=== PATIENT | female | born 1945 | race Caucasian/White ===

== ENCOUNTER 2023-04-18 21:07 | Emergency (ER) | payer MEDICARE ==
--- OUTSIDE RECORDS SUMMARY | 2023-04-18 21:29 | XMS REPORT | Continuity of Care Document ---
:1945 Author Organization [facility] t Address [address] [place] [address] [address] [place] [address] Care Team Providers Name Role Phone Nany Guzman MD Primary Care Physician [phone] Nany Guzman MD Attending Clinician [phone] NANY GUZMAN Attending Clinician Unavailable 2, Adc Lab Attending Clinician Unavailable Doctor Unassigned, [place] Attending Clinician Unavailable IGNACIO LIM Attending Clinician Unavailable JAMARI CASTILLO K.HJosseline Attending Clinician Unavailable Ignacio Lim MD Attending Clinician Aleks Cedeno MD Attending Clinician ALEKS CEDENO Attending Clinician Unavailable Only, Adc Test Attending Clinician Unavailable Pob, Adc Lab Main Attending Clinician Unavailable Jamari Castillo MD K.HJosseline Attending Clinician Aleks Cedeno MD Admitting Clinician ALEKS CEDENO Admitting Clinician Unavailable Payers Payer Name Policy Type Policy Number Effective Date Expiration Date S [facility] Bioclones [id number] 2022 (MEDICARE 00:00:00 REPLACEMENT HMO) [employer] MEDICARE ADV [id number] 2013 2021 00:00:00 00:00:00 CIGNA II [id number] 2009 00:00:00 Problems Condition Condition Condition Status Onset Resolution Last Treating Co mments Source Name Details Category Date Date Treatment Clinician Date Chronic Chronic Disease Active Univers midline midline 4-28 ity of low back low back 00:00: [place] pain pain 00 Medical without without Branch sciatica sciatica 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 00:00: [place] block block 00 Medical Branch Cortical Cortical Disease Active Unive rs age-relate age-relate 4-08 it y of d cataract d cataract [place] left of left 00 Medical eye eye Branch Diabetes Diabetes Disease Active Unive rs mellitus, mellitus, 4-08 ity of type II, type II, 00:00: [place] insulin insulin 00 Medical dependent dependent Bran ch Bilateral Bilateral Disease Active Uni vers lower lower 4-08 [place] of extremity extremity [place] edema edema 00 [place] Hyperlipid Hyperlipid Disease Active U nivers emia emia 8-21 ity of 00:00: [place] 00 Medical Branch Essential Essential Disease Active Uni vers hypertensi hypertensi 6-19 it y of on on 00:00: [place] Medical Branch Diabetes Diabetes Disease Active Overview: Un rene mellitus mellitus 6-19 Formattin ity of type 2, type 2, 00:00: g of this [place] uncontroll uncontroll 00 note Me dical ed, ed, might be Branch without without different complicati complicati from the ons ons original. ICD10 Diagnosis Term Client Experience Administrator Utility Allergies, Adverse Reactions, Alerts Allergy Allergy Status Severity Reaction(s) Onset Inactive Treating Comm ents Source Name Type Date Date Clinician Penicill Propensi Active Hives Univer s ins ty to 2-07 ity of adverse 00:00: [place] reaction 00 Medical s Branch PENICILL Drug Active Hives Univers INS Class 2-07 ity of 00:00: [place] 00 Medical Branch Penicill Propensi Active Hives Univer s ins ty to 2-07 ity of adverse 00:00: [place] reaction 00 Medical s Branch Penicill Propensi Active Hives Univer s ins ty to 2-07 ity of adverse 00:00: [place] reaction 00 Medical s Branch Social History Social Habit Start Date Stop Date Quantity Comments Source Alcohol intake 2021-11-07 2021-11-07 Current University of 00:00:00 00:00:00 non-drinker of [facility] alcohol (finding) [place] Tobacco use and 2013-02-05 2013-02-05 Smokeless tobacco Un iversity of exposure 00:00:00 00:00:00 non-user [facility] Sex Assigned At [birth year] Universit y of 00:00:00 00:00:00 [facility] Smoking Status Start Date Stop Date Source Never smoked tobacco [facility] Medications Ordered Filled Start Stop Current Ordering Indication Dosage Frequency Signature Comments Components Source Medication Medication Date Date Medication? Clinician (SIG) Name Name bisoproloL- 2021- No 5mg Take Unive rs hydrochloro 3-21 03-21 5-6.25 mg it y of thiazide 14:02: 00:00 by mouth. Malcolm as 5-6.25 mg 15 :00 Medical per tablet Branch bisoproloL- 2021- No 5mg Take Unive rs hydrochloro 3-21 03-21 5-6.25 mg it y of thiazide 14:02: 00:00 by mouth. Malcolm as 5-6.25 mg 15 :00 Medical per tablet Branch metformin Yes [id number] 1000mg Take 2 Univers ER 500 mg 3-21 tablets by ity of 24 hr 00:00: mouth 2 [place] tablet 00 (two) Medical times Branch daily. insulin Yes [id number] 45U inject 45 Univers degludec 3-21 Units ity of (TRESIBA 00:00[place] FLEXTOUCH 00 skin Medical U-100) 100 daily. Branch unit/mL (3 mL) InPn metformin Yes [id number] 1000mg Take 2 Univers ER 500 mg 3-21 tablets by ity of 24 hr 00:00: mouth 2 [place] tablet 00 (two) Medical times Branch daily. insulin Yes [id number] 45U inject 45 Univers degludec 3-21 Units ity of ([place]ESIBA 00:00[place] FLEXT[place] 00 skin Medical U-100) 100 daily. Branch unit/mL (3 mL) InPn metformin Yes [id number] 1000mg Take 2 Univers ER 500 mg 3-21 tablets by ity of 24 hr 00:00: mouth 2 [place] tablet 00 (two) Medical times Branch daily. insulin Yes [id number] 45U inject 45 Univers degludec 3-21 Units ity of (TRESIBA 00:00[place] FLEXT[place]CH 00 skin Medical U-100) 100 daily. Branch unit/mL (3 mL) InPn metformin Yes [id number] 1000mg Take 2 Univers ER 500 mg 3-21 tablets by ity of 24 hr 00:00: mouth 2 [place] tablet 00 (two) Medical times Branch daily. insulin Yes [id number] 45U inject 45 Univers degludec 3-21 Units ity of (TRESIBA 00:00[place] FLEXT[place]CH 00 skin Medical U-100) 100 daily. Branch unit/mL (3 mL) InPn metformin Yes [id number] 1000mg Take 2 Univers ER 500 mg 3-21 tablets by ity of 24 hr 00:00: mouth 2 [place] tablet 00 (two) Medical times Branch daily. insulin Yes [id number] 45U inject 45 Univers degludec 3-21 Units ity of (TRESIBA 00:00[place] FLEXT[place]CH 00 skin Medical U-100) 100 daily. Branch unit/mL (3 mL) InPn metformin 2021- No [id number] 1000mg Take 2 Univers ER 500 mg 4-29 03-21 tablets by ity of 24 hr 00:00: 00:00 mouth 2 [place] tablet 00 :00 (two) Medical times Branch daily. metformin 2021- No [id number] 1000mg Take 2 Univers ER 500 mg 4-29 03-21 tablets by ity of 24 hr 00:00: 00:00 mouth 2 [place] tablet 00 :00 (two) Medical times Branch daily. furosemide 2020-2021- No [id number] 20mg Take 1 Univers 20 mg 4-28 03-21 tablet by ity of tablet 00:00: 00:00 mouth [place] 00 :00 every Medical Sunday, Branch Sunday and Sunday. ciprofloxac 2021- No [id number] 500mg Take 1 Univers in HCl 500 4-28 -21 tablet by ity of mg tablet 00:00: 00:00 mouth [place] 00 :00 every 12 Medical (twelve) Branch hours. furosemide 2020-2- No [id number] 20mg Take 1 Univers 20 mg 12-15- tablet by ity of tablet 00:00: 00:00 mouth [place] 00 :00 every Medical Sunday, Branch Sunday and Sunday. ciprofloxac 0 2022- No [id number] 500mg Take 1 Univers in HCl 500 12-15- tablet by ity of mg tablet 00:00: 00:00 mouth [place] 00 :00 every 12 Medical (twelve) Branch hours. blood sugar Yes [id number] Dispense Univers diagnostic 4-08 brand ity of (ONETOUCH 00:[place] TEST[place] 00 insurance Med ical strip Branch bisoproloL- Yes [id number] 1{tbl} Take 1 Univers hydrochloro 4-08 tablet by ity of thiazide 00:00: mouth [place] 5-6.25 mg 00 daily. Medical per tablet Branch blood sugar Yes [id number] Dispense Univers diagnostic 4-08 brand ity of (ONETOUCH 00:[place] 00 insurance Med ical strip Branch bisoproloL- Yes [id number] 1{tbl} Take 1 Univers hydrochloro 4-08 tablet by ity of thiazide 00:00: mouth [place] 5-6.25 mg 00 daily. Medical per tablet Branch blood sugar 2020- Yes [id number] Dispense Univers diagnostic 4-08 brand ity of (ONETOUCH 00:[place] 00 insurance Med ical strip Branch bisoproloL- Yes [id number] 1{tbl} Take 1 Univers hydrochloro 4-08 tablet by ity of thiazide 00:00: mouth [place] 5-6.25 mg 00 daily. Medical per tablet Branch blood sugar Yes [id number] Dispense Univers diagnostic 4-08 brand ity of (ONETOUCH 00:[place] 00 insurance Med ical strip Branch bisoproloL- Yes [id number] 1{tbl} Take 1 Univers hydrochloro 4-08 tablet by ity of thiazide 00:00: mouth [place] 5-6.25 mg 00 daily. Medical per tablet Branch blood sugar Yes [id number] Dispense Univers diagnostic 4-08 brand ity of (ONETOUCH 00:00: covered by [employer] ULTRA TEST) 00 insurance Med ical strip Branch bisoproloL- Yes [id number] 1{tbl} Take 1 Univers hydrochloro -08 tablet by ity of thiazide 00:00: mouth [place] 5-6.25 mg 00 daily. Medical per tablet Branch insulin NPH 2021- No [id number] 45 units Univers and regular 11-25 in AM and it y of human 70-30 00:00: 00:00 35 [place] (NOVOLIN 00 :00 in PM Medical 70/30 U-100 Branch INSULIN) 100 unit/mL (70-30) injection SITagliptin 2021- No [id number] 100mg Take 1 Univers 100 mg 11-25 tablet by ity of tablet 00:00: 00:00 mouth [place] 00 :00 daily. Medical Branch insulin NPH 2021- No [id number] 45 units Univers and regular 11-25 in AM and it y of human 70-30 00:00: 00:00 35 [place] (NOVOLIN 00 :00 in PM Medical 70/30 U-100 Branch INSULIN) 100 unit/mL (70-30) injection SITagliptin 2021- No [id number] 100mg Take 1 Univers 100 mg 11-25 tablet by ity of tablet 00:00: 00:00 mouth [place] 00 :00 daily. [facility] Vital Signs Vital Name Observation Time Observation Value Comments Source Systolic blood 2021-11-07 18:13:00 106 mm[Hg] Univer sity of pressure [facility] Diastolic blood 2021-11-07 18:13:00 67 mm[Hg] [facility] Heart rate 2021-11-07 18:13:00 59 /min [facility] Body temperature 2021-11-07 18:13:00 36.44 [facility] Respiratory rate 2021-11-07 18:13:00 18 /min [facility] Body height 2021-11-07 18:13:00 160 cm [facility] Body weight 2021-11-07 18:13:00 106.595 kg [facility] BMI 2021-11-07 18:13:00 41.63 kg/m2 [facility] Oxygen saturation in 2021-11-07 18:13:00 95 /min University Arterial blood by [facility] Pulse oximetry Branch Procedures This patient has no known procedures. Encounters Start End Encounter Admission Attending Care Care Encounter Source Date/Time Date/Time Type Type Clinicians Facility Department ID 2022-12-23 2022-12-23 Outpatient [facility] [id number] Devoted 00:00:00 00:00:00 [id number] Medica l Group 2022-06-14 2022-06-14 [facility] [id number] [facility] 00:00:00 00:00:00 Nany BHAGAT [id number] ity of [place].2.686 [place] PROF[place] [phone] [address] 2022-06-12 2022-06-12 [facility] [id number] Devoted 00:00:00 00:00:00 [id number] Medica l Group 2022-05-01 2022-05-01 Outpatient R ALICIA [facility] [id number] [facility] 10:40:00 10:40:00 NANY oneal [facility] 2022-02-27 2022-02-27 [facility] [id number] [facility] 00:00:00 00:00:00 Nany BHAGAT [id number] ity of [place] [id number] [phone] [address] 2022-02-14 2022-02-14 Customer Support Manager 2, Adc Lab [facility] 1.2.840.114 [id number] [facility] 09:45:00 10:00:00 Visit Nany Guzman 350.1. 13.10 ity of [place] 4.2.[place].2.[place] [id number] [facility] [address] [facility] 2022-02-14 2022-02-14 Outpatient R ALICIA [facility] [id number] Univers 09:45:00 09:45:00 NANY oneal [facility] 2022-02-13 2022-02-13 [facility] [id number] Univers 16:40:00 16:40:00 NANY oneal [facility] 2021-11-07 2021-11-07 [facility] [id number] [facility] 13:00:00 14:25:10 NANY oneal [facility] 2021-11-07 2021-11-07 Office [facility] 1.2.840.114 [id number] [facility] 13:00:00 14:25:10 Visit Nany BHAGAT [id number] ity of [place] 4.2.[place].2.[place] [phone] [facility] [address] [facility] 2021-11-07 2021-11-[address] [facility] [id number] [facility] 00:00:00 00:00:00 Nany BHAGAT [id number] it[place] of [place] [phone] [address] 2021-08-23 2021-08-23 Orders Doctor EMERITA 1.2.840.114 [id number] Univers 00:00:00 00:00:00 Only Unassigned, JONATHAN [id number] ity of [place] [facility] 4.2.7.2.686 Malcolm as [phone] [address] 2021-05-09 2021-05-09 Orders Doctor EMERITA 1.2.840.114 [id number] [facility] 00:00:00 00:00:00 Only Unassigned, JONATHAN [id number] ity of [place] [facility] 4.2.7.2.686 [place] as [phone] [address] 2021-03-24 2021-03-24 [facility] [id number] Univers 14:20:00 14:20:00 IGNACIO jm [facility] 2021-01-13 2021-01-13 [facility] [id number] Univers 09:00:00 09:00:00 SENDIL ity [facility] 2020-12-22 2020-12-22 [facility] [id number] Univers 11:00:00 11:00:00 [facility] 2020-12-16 2020-12-16 [facility] 1.2.840.114 [id number] Univers 00:00:00 00:00:00 Nany Cal[place] [id number] ity of [place] 4.2.7.2.686 Malcolm as Professio [phone] [address] Office Building One 2020-12-15 2020-12-15 Telemedici [facility] 1.2.840.114 [id number] Univers 12:13:29 12:13:49 ne Visit Ignacio Bhagat 350.1.13.10 it[place] Profess[place] [phone] [address] 2020-12-15 2020-12-15 [facility] [id number] Univers 09:00:00 12:13:49 IGNACIO oneal [facility] 2020-12-09 2020-12-09 Telephone [facility] 1.2.840.114 [id number] Univers 00:00:00 00:00:00 Ignacio Bhagat 350.1.13.10 i ty [place]2.[place] Profess[place] [phone] [address] 2020-12-08 2020-12-08 [facility] [id number] Univers 06:46:00 09:00:00 Encounter Aleks Bhagat 350.1.13.10 ity of [place].2.[place] Surgical [id number] [facility] 071 Branch 2020-12-08 2020-12-08 [facility] OPH [id number] Univers 06:46:00 09:00:00 ALEKS ity [facility] 2020-12-08 2020-12-08 Surgery [facility] 1.2.840.114 [id number] Univers 08:00:00 08:42:00 Aleks Bhagat 350.1.13.10 ity of [place] 4[place]2.[place].2.[place] Surgical [id number] [facility] 020 Branch 2020-12-08 2020-12-08 Orders Doctor EMERITA 1.2.840.114 [id number] Univers 00:00:00 00:00:00 Only Unassigned, JONATHAN 350.1.13.10 ity of [place] [facility] 4.2.7.2.686 Malcolm as [phone] [facility] [address] [place] 2020-12-07 2020-12-07 Outpatient R WILIAN [facility] [id number] Univers 09:00:00 09:00:00 ALEKS ravi [facility] 2020-12-07 2020-12-07 Laboratory Only, Adc Test [facility] 1.2.840. 114 [id number] Univers 08:39:49 08:54:49 Only Aleks Cedeno 350.1.13.1 0 ity of [place] [phone] [facility] 353 Branch 2020-12-07 2020-12-07 Orders Doctor FELDER 1.2.840.114 [id number] Univers 00:00:00 00:00:00 Only Unassigned, JONATHAN 350.1.13.10 ity of [place] [facility] 4.2.7.2.686 Malcolm as [phone] [facility] 009 [place] 2020-12-03 2020-12-03 Customer Support Manager Ashley, Adc Lab Main [facility] 1.2.8 [id number] Univers 10:27:26 10:42:26 Visit Aleks Cedeno 350.1.13.1 0 ity of [place] 4[place].2.[place] Profess[place] [phone] Mt dical nal [address] [facility] 2020-12-03 2020-12-03 Outpatient R WILIAN [facility] [id number] Univers 10:15:00 10:15:00 ALEKS ity of [facility] 2020-12-03 2020-12-03 Orders Doctor FELDER 1.2.840.114 [id number] Univers 00:00:00 00:00:00 Only Unassigned, JONATHAN 350.1.13.10 ity of [place] [facility] 4.2.7.2.686 Malcolm as [phone] [address] 2020-11-29 2020-11-29 Outpatient R ANNA [facility] [id number] Univers 13:30:00 13:56:06 SENDIL ity [facility] 2020-11-29 2020-11-29 Office Anna [facility] 1.2.840.114 [id number] Univers 12:51:45 13:56:06 Visit Jamari Bhagat 350.1.13.10 ity of [place] 4[place]2.[place].2.[place] Profess[place] [phone] Mt dical nal [address] [facility] 2020-11-29 2020-11-29 Outpatient R ANNA [facility] [id number] Univers 13:00:00 13:00:00 SENDIL ity [facility] 2020-11-29 2020-11-29 Orders Doctor FELDER 1.2.840.114 [id number] Univers 00:00:00 00:00:00 Only Unassigned, JONATHAN 350.1.13.10 ity of [place] [facility] 4.2.7.2.686 Malcolm as [phone] [address] 2020-11-25 2020-11-25 Customer Support Manager 2, Adc Lab [facility] 1.2.840.114 [id number] Univers 14:02:25 14:17:25 Visit Ignacio Lim 350.1.13.10 ity of [place] 4[place]2.[place] [phone] Mt dical nal [address] [facility] 2020-11-25 2020-11-25 Outpatient R KAYLEY [facility] [id number] [facility] 14:40:00 13:46:44 IGNACIO itravi of [facility] 2020-11-25 2020-11-25 Office [facility] 1.2.840.114 [id number] [facility] 13:45:04 13:46:44 Visit Ignacio Bhagat 350.1.13.10 i ty of [place] 4[place]7.2.[place] [phone] Mt dical [facility] [address] [facility] 2020-11-25 2020-11-25 Office [facility] 1.2.840.114 [id number] [facility] 12:47:30 13:46:29 Visit Ignacio Bhagat 350.1.13.10 i ty of [place] 4.2.7.2.[place] Profess[place] [phone] [address] 2020-11-09 2020-11-09 Telephone Guzman, [facility] 1.2.840.114 [id number] Univers 00:00:00 00:00:00 Nany Bhagat 350.1.13.10 ity [place]2.[place] [phone] [address] 2020-08-16 2020-08-16 [facility] 12.840.114 [id number] Univers 00:00:00 00:00:00 Nany Bhagat 350.1.13.10 ity of [place] 4[place].2.[place] [phone] [facility] [address] [facility] 2020-08-05 2020-08-05 [facility] 12.840.114 [id number] Univers 00:00:00 00:00:00 Nany Bhagat 350.1.13.10 ity of [place].2.[place] [phone] [facility] [address] [facility] 2020-07-23 2020-07-23 [facility] [id number] Univers 11:00:00 11:00:00 NANY oneal [facility] 2020-07-23 2020-07-23 Customer Support Manager 2, Adc Lab [facility] 1.2.840.114 [id number] Univers 10:17:12 10:32:12 Visit Nany Guzman 350.1. 13.10 ity of [place] 4[place]2.[place].2.[place] Profess[place] [phone] [facility] [address] [facility] 2020-07-19 2020-07-19 [facility] 1.2.840.114 [id number] [facility] 09:30:01 12:01:05 Visit Nany Bhagat 350.1.13.10 ity of [place] 4[place]7.2.[place] [phone] [facility] [address] [facility] 2020-07-19 2020-07-19 [facility] [id number] Univers 11:00:00 11:00:00 NANY oneal [facility] 2020-05-06 2020-05-06 Letter Guzman, [facility] 1.2.840.114 [id number] Univers 00:00:00 00:00:00 (Out) Nany [place] 350.1.13.10 ity [place] 4.[place].2.[place] [phone] [address] 2020-05-06 2020-05-06 Telephone Guzman, [facility] 1.2.840.114 [id number] Univers 00:00:00 00:00:00 Nany Viky [place] 350.1.13.10 ity of [place] 4.[place].2.[place] [phone] [address] 2020-05-04 2020-05-04 Telephone Guzman, [facility] 1.2.840.114 [id number] Univers 00:00:00 00:00:00 Nany [facility] 350.1.13.10 ity of [place] 4.2.7.2.686 Malcolm as Professio [phone] Mt dical nal [address] 2020-04-19 2020-04-19 Customer Support Manager 2, Adc Lab [facility] 1.2.840.114 [id number] Univers 14:59:45 15:14:45 Visit Nany Guzman 350.1. 13.10 ity of [place] 4.2.7.2.[place] Profess[place] [phone] Mt dical nal [address] [facility] 2020-04-19 2020-04-19 Office Alicia [facility] 1.2.840.114 [id number] Univers 13:39:31 14:51:23 Visit Nany Bhagat 350.1.13.10 ity of [place] 4.2.7.2.[place] [phone] Mt dical nal [address] [facility] 2020-04-19 2020-04-19 Outpatient R ALICIA [facility] [id number] Univers 13:40:00 13:40:00 NANY oneal of [facility] 2020-04-19 2020-04-19 Orders Doctor EMERITA 1.2.840.114 [id number] Univers 00:00:00 00:00:00 Only Unassigned, JONATHAN 350.1.13.10 ity of [place] [facility] 4.2.7.2.686 Malcolm as [phone] [place] [address] Branch Results This patient has no known results.
[2023-04-18] MEDS ORDERED: MORPHINE 4 MG/ML SYR ONE (21:59)
[2023-04-18] MEDS ORDERED: ONDANSETRON 4 MG (ODT) TAB ONE (21:59)
--- NOTE | 2023-04-18 22:47 | RAD REPORT ---
EXAM DESCRIPTION: CT - Head C Spine Cap Wo Con - 04/18/2023 10:19 pm CLINICAL HISTORY: Head and neck injury with chest and abdominal pain status post fall TECHNIQUE: Computed axial tomography of head, neck, chest, abdomen and pelvis obtained. IV and oral contrast not requested. Coronal and sagittal reconstruction performed. All CT scans are performed using dose optimization technique as appropriate and may include automated exposure control or mA/KV adjustment according to patient size. COMPARISON: None FINDINGS: Artifact from earrings obscure portions of temporal regions bilaterally. An intracranial bleed is not seen. The ventricles are normal in caliber. An extra-axial fluid collection is not noted. Fluid within the sinuses/mastoids is not seen. A cervical fracture is not seen. No dislocation is noted. Anterior fusion C5 and C6 Multinodular thyroid quarter. This was described on recent ultrasound The evaluation of mediastinum, ibis, vessels, solid organs and bowel are limited secondary to the lac k of contrast administration. A mediastinal hematoma is not noted. A pleural effusion is not seen. A lung contusion is not present. The liver,spleen, pancreas, adrenals,kidneys and bladder do not demonstrate an acute traumatic injury Left renal calculus. Parapelvic renal cysts. IMPRESSION: No acute intracranial abnormality is seen. A cervical fracture is not visualized. If the patient continues to have symptoms to suggest intracran ial/spinal cord pathology MRI be recommended No acute traumatic abnormality involving the chest, abdomen or pelvis
--- NOTE | 2023-04-18 23:40 | EDPHYS ---
Physician Documentation [facility] Name: Kristina Cooley Age: 78 yrs Sex: Female : 1945 Arrival Date: 04/18/2023 Time: 21:07 Bed 19 Private MD: ED Physician Jarret Lind HPI: 04/18 23:23 This 78 yrs old Female presents to ER via EMS with complaints of Fall Injury. kb 23:23 Details of fall: The patient fell from an upright position, while standing. Onset: The kb symptoms/episode began/occurred just prior to arrival. Associated injuries: The patient sustained injury to the head, pain, neck injury, pain, upper back injury, pain, injury to the low back, pain, injury to the chest, pain with breathing, pain with movement. Severity of symptoms: At their worst the symptoms were moderate, in the emergency department the symptoms are unchanged. The patient has not experienced similar symptoms in the past. The patient has not recently seen a physician. Pt tried to sit in the seat of her walker and it rolled back causing her to fall onto back and hit head. c/o headache, neck pain, back pain, left knee pain and chest pain due to fall. Historical: - Allergies: 21:12 PENICILLINS; rv - PMHx: 21:12 Hypertensive disorder; Diabetes mellitus; rv - PSHx: 21:12 NECK SX; rv - Immunization history:: Adult Immunizations up to date. - Social history:: Smoking status: Patient denies any tobacco usage or history of. ROS: 23:21 Constitutional: Negative for fever, chills, and weight loss. kb 23:21 Neck: Positive for tenderness. 23:21 Cardiovascular: Positive for chest pain, with movement. 23:21 Back: Positive for pain at rest, pain with movement, of the thoracic area and lumbar area. 23:21 MS/extremity: Positive for pain, of the left knee. 23:21 Neuro: Positive for headache. 23:21 All other systems are negative. Exam: 23:21 Constitutional: This is a well developed, well nourished patient who is awake, alert, kb and in no acute distress. Head/Face: Normocephalic, atraumatic. Eyes: Pupils equal round and reactive to light, extra-ocular motions intact. Lids and lashes normal. Conjunctiva and sclera are non-icteric and not injected. Cornea within normal limits. Periorbital areas with no swelling, redness, or edema. ENT: Moist Mucous membranes Cardiovascular: Regular rate and rhythm with a normal S1 and S2. No gallops, murmurs, or rubs. No pulse deficits. Respiratory: Respirations even and unlabored. No increased work of breathing. Talking in full sentences Abdomen/GI: Soft, non-tender. No distention Skin: Warm, dry with normal turgor. Normal color. Neuro: Awake and alert, GCS 15, oriented to person, place, time, and situation. Moves all extremities. Normal gait. 23:21 Neck: C-spine: C-collar placed [employer], C-collar is removed, after CT scanning reveals no obvious unstable abnormality, vertebral tenderness, that is mild, diffusely. 23:21 Chest/axilla: Inspection: normal, Palpation: tenderness, that is mild, that totally reproduces the patient's complaints. 23:21 Back: pain, that is moderate, of the thoracic area and lumbar area. Vital Signs: 21:10 BP 175 / 64; Pulse 83; Resp 18; Temp 98.2; Pulse Ox 96% ; Weight 90.72 kg; rv MDM: 21:18 Patient medically screened. kb 23:23 Differential diagnosis: closed head injury, contusion, fracture. Data reviewed: vital kb signs, nurses notes. Historians other than the Patient: EMS: [facility]. Counseling: I had a detailed discussion with the patient and/or guardian regarding the historical points, exam findings, and any diagnostic results supporting the discharge/admit diagnosis, radiology results, the need for outpatient follow up, a family practitioner, to return to the emergency department if symptoms worsen or persist or if there are any questions or concerns that arise at home. 04/18 21:24 Order name: CT Traumagram (Head C Spine CAP wo con); Complete Time: 22:50 kb 04/18 21:45 Order name: Knee Left 3 View XRAY kb Administered Medications: :45 Not Given (Duplicate Order): morphine IVP or IV 4 mg IVP once over 4 mins kb 22:01 Drug: Ondansetron PO 4 mg Route: PO; iw 22:30 Follow up: Response: No adverse reaction iw 22:01 Drug: morphine IM 4 mg Route: IM; Site: right deltoid; iw 22:40 Follow up: Response: No adverse reaction; Pain is decreased iw Disposition: 04/19 01:36 Co-signature as Attending Physician, Jarret Lind MD I agree with the assessment sp4 and plan of care. I reviewed the patient's care provided by the Advanced Practice Provider and agree with the diagnosis and treatment plan. Disposition Summary: 04/18/23 23:39 Discharge Ordered Location: Home kb Condition: Stable kb Diagnosis - Fall on same level from slipping, tripping and stumbling without subsequent kb striking against object - Unspecified injury of head, initial encounter kb - Cervicalgia kb - Chest pain on breathing kb - Pain in left knee kb - Back Pain kb Followup: kb - With: Emergency Department - When: As needed - Reason: Worsening of condition Followup: kb - With: Private Physician - When: 2 - 3 days - Reason: Recheck today's complaints, Continuance of care, Re-evaluation by your physician Discharge Instructions: - Discharge Summary Sheet kb - Musculoskeletal Pain kb - Head Injury, Adult, [id number] kb Forms: - Medication Reconciliation Form kb - Thank You Letter kb - Antibiotic Education kb - Prescription Opioid Use kb - Patient Portal Instructions kb - Leadership Thank You Letter kb Prescriptions: - Tramadol 50 mg Oral Tablet - take 1 tablet by ORAL route every 8 hours as needed; 12 tablet; Refills: 0, kb Product Selection Permitted Signatures: Dispatcher [employer] Ewelina Wayne, JASON [employer]-Elissa Nguyen RN RN iw Vicente, Ronaldo RN Jarret Salas MD MD sp4
--- NOTE | 2023-04-18 23:40 | ER ---
Nurse's Notes [facility] Name: Kristina Cooley Age: 78 yrs Sex: Female : 1945 Arrival Date: 04/18/2023 Time: 21:07 Bed 19 Private MD: Diagnosis: Fall on same level from slipping, tripping and stumbling without subsequent striking against object;Unspecified injury of head, initial encounter;Cervicalgia;Chest pain on breathing;Pain in left knee;Back Pain Presentation: 04/18 21:10 Chief complaint: EMS states: TRIP AND FELL ON THE PORCH, UNKNOWN LOC, PT IS COMPLAINING rv OF NECK PAIN, MID BACK PAIN, SHOULDER PAIN, AND LEFT KNEE PAIN. AAOX4 UPON ARRIVAL TO ER. WITH NECK BRACE IN PLACE. Coronavirus screen: At this time, the client does not indicate any symptoms associated with coronavirus-19. Ebola Screen: No symptoms or risks identified at this time. Initial Sepsis Screen: Does the patient meet any 2 criteria? No. Patient's initial sepsis screen is negative. Does the patient have a suspected source of infection? No. Patient's initial sepsis screen is negative. Risk Assessment: Do you want to hurt yourself or someone else? Patient reports no desire to harm self or others. Onset of symptoms was April 18, 2023. 21:10 Method Of Arrival: EMS: [facility] 21:10 Acuity: MARTI 2 rv Triage Assessment: 21:12 General: Appears uncomfortable, Behavior is anxious. Pain: Complains of pain in back rv and left leg. Neuro: Level of Consciousness is awake, alert, obeys commands, Oriented to person, place, time, situation. Cardiovascular: Capillary refill. Respiratory: Airway is patent Respiratory effort is even, unlabored. Derm: Skin is intact. Musculoskeletal: Range of motion: intact in all extremities, Reports pain in back and left leg. Historical: - Allergies: 21:12 PENICILLINS; rv - PMHx: 21:12 Hypertensive disorder; Diabetes mellitus; rv - PSHx: 21:12 NECK SX; rv - Immunization history:: Adult Immunizations up to date. - Social history:: Smoking status: Patient denies any tobacco usage or history of. Screenin:27 [facility] ED Fall Risk Assessment (Adult) Score/Fall Risk Level. Abuse screen: Denies iw threats or abuse. Denies injuries from another. Nutritional screening: No deficits noted. Tuberculosis screening: No symptoms or risk factors identified. Assessment: 22:00 Reassessment: Patient appears in no apparent distress at this time. Patient and/or iw family updated on plan of care and expected duration. Pain level reassessed. Patient is alert, oriented x 3, equal unlabored respirations, skin warm/dry/pink. pt states her left knee is feeling better but her neck is still hurting. Vital Signs: 21:10 BP 175 / 64; Pulse 83; Resp 18; Temp 98.2; Pulse Ox 96% ; Weight 90.72 kg; rv ED Course: 21:09 Patient arrived in ED. iw 21:12 Triage completed. rv 21:14 Elissa Najera, RN is Primary Nurse. iw 21:14 Arm band placed on right wrist. rv 21:18 Ewelina Awan FNP-C is PHCP. kb 21:18 Jarret Lind MD is Attending Physician. kb 22:00 Patient has correct armband on for positive identification. iw 22:22 CT Traumagram (Head C Spine CAP wo con) In Process Unspecified. EDMS 22:32 Knee Left 3 View XRAY In Process Unspecified. EDMS 23:51 No provider procedures requiring assistance completed. Patient did not have IV access iw during this emergency room visit. Administered Medications: 21:45 Not Given (Duplicate Order): morphine IVP or IV 4 mg IVP once over 4 mins kb 22:01 Drug: Ondansetron PO 4 mg Route: PO; iw 22:30 Follow up: Response: No adverse reaction iw 22:01 Drug: morphine IM 4 mg Route: IM; Site: right deltoid; iw 22:40 Follow up: Response: No adverse reaction; Pain is decreased iw Medication: 22:00 VIS not applicable for this client. iw Outcome: 23:39 Discharge ordered by . kb 23:51 Discharged to home via wheelchair, with family. iw 23:51 Condition: good 23:51 Discharge instructions given to patient, family, Instructed on discharge instructions, follow up and referral plans. medication usage, Demonstrated understanding of instructions, follow-up care, medications, Prescriptions given X 1. 23:52 Patient left the ED. iw Signatures: Dispatcher [employer] EDMS Ewelina Awan FNP-C POSTMASTER-Ckb Elissa Najera, RN RN iw Uli Freedman, RN RN rv
[2023-04-18 23:57] VITALS: BP 175/64; TEMP 98.2; O2SAT 96
--- NOTE | 2023-04-19 13:08 | RAD REPORT ---
EXAM DESCRIPTION: RAD - Knee Left 3 View - 04/18/2023 10:32 pm CLINICAL HISTORY: Pain. TECHNIQUE: Left knee 3 views. COMPARISON: None. FINDINGS: There is no evidence of fracture or dislocation. There is mild tricompartmental osteoarthritis. There is no joint effusion. The soft tissues are unremarkable. IMPRESSION: 1. No fracture. 2. Mild tricompartmental osteoarthritis. Electronically signed by: Maco Domínguez MD 04/18/2023 10:51 PM CDT Due to temporary technical issues with the PACS/[employer] reporting system, reports are being signed by the in house radiologists without review as a courtesy to insure prompt reporting. The interpreting radiologist is fully responsible for the content of the report.
== END 2023-04-18 23:52 | disposition home or self-care (01) ==
LOC: ER 21:07
DX: S09.90XA Unspecified injury of head, initial encounter (principal); M54.2 Cervicalgia; R07.1 Chest pain on breathing; M25.562 Pain in left knee; M54.9 Dorsalgia, unspecified; W01.0XXA Fall on same level from slipping, tripping and stumbling without subsequent striking against object, initial encounter; I10 Essential (primary) hypertension; E11.9 Type 2 diabetes mellitus without complications; Z88.0 Allergy status to penicillin
CPT/HCPCS: 70450; 71250; 72125; 73562; Q0162

== ENCOUNTER 2024-08-12 20:16 | Observation (INO) | payer MEDICARE ==
[2024-08-12] MEDS ORDERED: ACETAMINOPHEN 500 MG TAB ONE (20:58)
[2024-08-12] MEDS ORDERED: IBUPROFEN 400 MG TAB ONE (20:58)
[2024-08-12] MEDS ORDERED: NA CHLORIDE 0.9% 1,000 ML ONE (20:58)
[2024-08-12] MEDS ORDERED: ONDANSETRON 4 MG/2 ML VIAL ONE (20:58)
[2024-08-12 21:45] LABS: Protime INR 1.07
--- NOTE | 2024-08-12 21:46 | RAD REPORT ---
Procedure: Chest Single View HISTORY: Syncope COMPARISON: December 2023 FINDINGS: The lungs appear clear of acute infiltrate. No significant pleural effusion noted. The heart is mildly enlarged.. IMPRESSION: No acute abnormality is displayed.
[2024-08-12 21:50] LABS: Absolute Lymphocytes (CBC) 0.6 K/uL (0.7-4.9); Absolute Monocytes 0.9 K/uL (0.1-1.3); Absolute Neutrophil 10.3 K/uL (1.8-8.0); Basophils % 0.3 % (0-1.3); Eosinophils % 0.1 % (0-4.4); Hematocrit 36.2 % (36.0-45.0); Hemoglobin 11.7 g/dL (12.0-15.0); MCH 27.4 pg (27.0-35.0); MCHC 32.3 g/dL (32.0-36.0); MCV 84.7 fL (80-100); MPV 9.5 fL (7.6-11.3); Monocytes % 7.5 % (3.3-12.3); Neutrophils % 87.1 % (41.7-73.7); Platelets 195 thou/uL (152-406); RBC Red Blood Cell Count 4.27 M/uL (3.86-4.86); Red Cell Distribution Width 13.5 % (12.1-15.2)
[2024-08-12 22:00] LABS: ALT/SGPT 21 U/L (13-56); AST/SGOT 22 U/L (15-37); Albumin 3.1 g/dL (3.4-5.0); Albumin/Globulin Ratio 0.8 (1.1-1.8); Alkaline Phosphatase 83 U/L (45-117); Anion Gap 8.2 mEq/L (5.0-15.0); BUN Blood Urea Nitrogen 26 mg/dL (7-18); Bicarbonate 27 mEq/L (21-32); Bilirubin Total 0.5 mg/dL (0.2-1.0); Globulin 3.9 g/dL (2.3-3.5); Glomerular Filtration Rate 61 ml/min (=/>90); Glucose Level 164 mg/dL (74-106); Magnesium 1.8 mg/dL (1.6-2.4); NT PRO-BNP 1043 pg/mL (<450); Potassium 4.2 mEq/L (3.5-5.1); Sodium Level 137 mEq/L (136-145); Troponin High Sensitivity 10.3 pg/mL (<58.9)
[2024-08-12 22:06] LABS: Bilirubin Direct < 0.2 mg/dL (0-0.2); Bilirubin Indirect, Calculated 0.3 mg/dL (0.2-0.8)
[2024-08-12 22:07] LABS: C-Reactive Protein 18.4 mg/L (<3.00); Thyroid Stimulating Hormone 0.16 uIU/mL (0.358-3.740)
[2024-08-12 23:24] LABS: Specific Gravity 1.023 (1.005-1.030); Sqamous Epithelial <5 /HPF (None Seen); Urine Bacteria None Seen /HPF (<20); Urine Bilirubin NEGATIVE (Negative); Urine Blood Negative (Negative); Urine Clarity Clear (Clear); Urine Color Yellow (Yellow); Urine Culture Reflex Order NOT NEEDED; Urine Glucose NEGATIVE (Negative); Urine Ketones NEGATIVE (Negative); Urine Micro Reflex YN NO BILL MICROSCOPIC; Urine Nitrite NEGATIVE (Negative); Urine Protein NEGATIVE (Negative); Urine RBC <5 /HPF (None Seen); Urine Urobilinogen Normal (Normal); Urine WBC <5 /HPF (<5); Urine pH 5.5 (5.0-7.0)
[2024-08-12 23:37] LABS: Band Neutrophils 9 % (0-1); Differential Total Cells Count 100; Lymphocytes 2 % (15-42); Monocytes 13 % (0-10); Segmented Neutrophils 76 % (40-80)
[2024-08-12 23:38] LABS: Blood Morphology Comment NOT SEEN (NOT SEEN); Platelet Estimate ADEQ
--- NOTE | 2024-08-12 23:56 | RAD REPORT ---
EXAM: CT Chest, Abdomen and Pelvis Without Intravenous Contrast CLINICAL HISTORY: The patient is 79 years old and is Female; fever, weakness TECHNIQUE: Axial computed tomography images of the chest, abdomen and pelvis without intravenous contrast. S agittal and coronal reformatted images were created and reviewed. This CT exam was performed using one or more of the following dose reduction techniques: automated exposure control, adjustmen t of the mA and/or kV according to patient size, and/or use of iterative reconstruction technique. COMPARISON: No relevant prior studies available. FINDINGS: CHEST: LUNGS: Minimal dependent densities in the right lower lobe are present. The lungs are otherwise w ell-inflated and clear. PLEURAL SPACE: Unremarkable. No significant effusion. No pneumothorax. HEART: No cardiomegaly. No pericardial effusion. THYROID: The thyroid gland is enlarged. A 3.5 cm right thyroid nodule is noted. ABDOMEN: LIVER: Homogeneous without focal mass. GALLBLADDER AND BILE DUCTS: The gallbladder is distended. No calcified gallstones or ductal dilat ation is seen. PANCREAS: Fatty infiltration and atrophy of the pancreas is present. No ductal dilation. SPLEEN: Unremarkable. ADRENALS: Unremarkable. No mass. KIDNEYS AND URETERS: Multiple bilateral parapelvic renal cysts are noted. No follow-up imaging is recommended. Bilateral intrarenal calcifications are present. There is no hydronephrosis or hydroureter of either kidney. No obstructing calculus is seen. STOMACH AND BOWEL: The stomach is distended with food contents and air. The small bowel is normal in caliber. A moderate rectal stool ball is present. Stool is present throughout the colon. There is no mucosal thickening or evidence of obstruction. Scattered colonic diverticula are noted without surrounding inflammation. PELVIS: APPENDIX: The appendix is normal in caliber without surrounding inflammation. BLADDER: The bladder is incompletely distended. No stones. REPRODUCTIVE: Unremarkable as visualized. CHEST, ABDOMEN and PELVIS: INTRAPERITONEAL SPACE: Unremarkable. No significant fluid collection. No free air. BONES/JOINTS: No acute fracture. SOFT TISSUES: The soft tissues are normal. VASCULATURE: Atherosclerosis of the vasculature is present. The vessels are normal in caliber. No aortic aneurysm. LYMPH NODES: Unremarkable. No enlarged lymph nodes. IMPRESSION: 1. Right lower lobe atelectasis/scarring. 2. No bowel obstruction. Colonic diverticulosis. 3. Right thyroid nodule. Recommend non-emergent thyroid ultrasound. Electronically signed by: Lesvia Do MD 08/12/2024 11:50 PM [facility] Due to temporary technical issues with the PACS/[employer]Smart reporting system, reports are being angelina d by the in-house radiologist without review as a courtesy to ensure prompt reporting the interpreting radiologist is fully responsible for the content of the report. Transcribed Date/Time: 08/12/2024 11:56 PM
--- NOTE | 2024-08-13 00:19 | RAD REPORT ---
EXAM: Head Brain Wo Cont INDICATION: 79-year-old female with dizziness. COMPARISON: CT of the head 04/18/2023 TECHNIQUE: TECHNIQUE: Axial CT images of the brain were performed using dose reduction techniques i ncluding automated exposure control and/or adjustment of the mA and/or kV according to patient size, and/or iterative reconstruction techniques. Coronal and sagittal reformatted images were also p erformed. No IV contrast administered. FINDINGS: Brain parenchyma demonstrates no mass effect, shift, ventriculomegaly, or hemorrhage. Normal brenner/white matter differentiation. Mild bilateral cerebral hemispheric nonspecific deep white matter abnormal hypoattenuation, most suggestive of chronic cerebral microangiopathy. If symptoms persist MRI of the brain suggested for more sensitive evaluation, as clinically indicated. Osseous structures intact. Partially visualized mild to moderate subtotal opacification of the right maxillary sinus which can b e seen with fluid and mucosal thickening. Mild bilateral mastoidal air cells subtotal opacification. Please clinically correlate for mastoiditi s. Bilateral intraocular lens implants from prior cataract surgery. Mild bilateral cavernous carotid atherosclerotic calcifications. IMPRESSION: 1. Mild chronic appearing bilateral cerebral hemispheric deep white matter cerebral microangiopathy. 2. Partially visualized right maxillary sinus disease. 3. Mild bilateral mastoidal air cells disease. Please clinically correlate for mastoiditis. Electronically signed by: Braulio Oro MD 08/12/2024 11:57 PM [facility] Due to temporary technical issues with the PACS/[employer] reporting system, reports are being angelina d by the in-house radiologist without review as a courtesy to ensure prompt reporting the interpreting radiologist is fully responsible for the content of the report. Transcribed Date/Time: 08/13/2024 12:19 AM
--- NOTE | 2024-08-13 00:33 | EDPHYS ---
Physician Documentation [facility] Name: Kristina Cooley Age: 79 yrs Sex: Female : 1945 Arrival Date: 08/12/2024 Time: 20:16 Bed 23 Private MD: ED Physician Jarret Lind HPI: 08/12 20:21 This 79 yrs old Female presents to ER via Unassigned with complaints of Flu sp4 Symptoms, Low Blood Sugar, Dizziness, Weakness, Fever, Near Syncope. 22:35 Patient's medications include metformin 1000 mg p.o. twice daily, insulin 70/30 30 sp4 units daily, Mounjaro insulin and bisoprolol.. 08/13 00:33 Patient also takes methimazole 5 mg daily, patient is under care of cork compounder is sp4 also under the care of Dr. Moralez for chronic kidney disease stage II. 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 - Infectious Disease History:: Denies. - Social history:: Smoking status: Patient denies any tobacco usage or history of. - Family history:: not pertinent. ROS: 08/13 00:33 Constitutional: Positive for fever, positive for tremors, positive for generalized sp4 weakness, positive for near syncope All other systems are negative, Exam: 00:27 Constitutional: This is a well developed, well nourished patient who is awake, alert, sp4 ill-appearing female with persistent tremors. Head/Face: Normocephalic, atraumatic. Eyes: Pupils equal round and reactive to light, extra-ocular motions intact. Lids and lashes normal. Conjunctiva and sclera are not injected. Cornea within normal limits. Periorbital areas with no swelling, redness, or edema. ENT: Nares patent. No nasal discharge, no septal abnormalities noted. Tympanic membranes are normal and external auditory canals are clear. Oropharynx with no redness, swelling, or masses, exudates, or evidence of obstruction, uvula midline. Mucous membranes moist. Neck: Trachea midline, no thyromegaly or masses palpated, and no cervical lymphadenopathy. Supple, full range of motion without nuchal rigidity, or vertebral point tenderness. Chest/axilla: Normal chest wall appearance and motion. Nontender with no deformity. No lesions are appreciated. Cardiovascular: Regular rate and rhythm with a normal S1 and S2. No gallops, murmurs, or rubs. Normal PMI, no JVD. No pulse deficits. Respiratory: Lungs have equal breath sounds bilaterally, clear to auscultation and percussion. No rales, rhonchi or wheezes noted. No increased work of breathing, no retractions or nasal flaring. Abdomen/GI: Soft, with normal bowel sounds. No distension or tympany. No guarding or rebound. No evidence of tenderness throughout. Back: No spinal tenderness. No costovertebral tenderness. Skin: Warm, dry with normal turgor. Normal color with no rashes, no lesions, and no evidence of cellulitis. MS/ Extremity: Pulses equal, no cyanosis. Neurovascular intact. Full, normal range of motion. Neuro: Awake and alert, GCS 15, oriented to person, place, time, and situation. Cranial nerves II-XII grossly intact. Motor strength 5/5 in all extremities. Sensory grossly intact. There is persistent resting tremor Psych: Awake, alert, with orientation to person, place and time. Behavior, mood, and affect are within normal limits 00:27 ECG was reviewed by the Attending Physician. EKG at 2134 sinus rhythm with first-degree AV block rate 73 Vital Signs: 08/12 20:25 BP 155 / 69; Pulse 82; Resp 19; Temp 99.2(O); Pulse Ox 94% on R/A; MAP 91 mmHg; Weight hb 95.25 kg; Height 5 ft. 2 in. ; Pain 0/10; 20:42 Temp 100.4(O); me1 21:30 BP 128 / 94; Pulse 73; Resp 16; Pulse Ox 97% ; me1 22:30 BP 129 / 58; Pulse 66; Resp 16; Pulse Ox 95% ; me1 23:00 BP 109 / 59; Pulse 55; Resp 17; Pulse Ox 92% ; me1 23:59 BP 109 / 49; Pulse 57; Resp 18; Pulse Ox 94% on R/A; me1 12/25 01:00 BP 84 / 38; Pulse 53; Resp 20; Pulse Ox 98% ; jj7 01:30 BP 81 / 43; Pulse 44; Resp 18; Pulse Ox 94% ; jj7 02:22 BP 99 / 51; Pulse 45; Resp 15; Pulse Ox 96% ; jj7 02:54 BP 103 / 43; Pulse 49; Resp 16; Pulse Ox 96% ; Pain 0/10; jj7 08/12 20:25 Body Mass Index 38.41 (95.25 kg, 157.48 cm) hb 08/12 20:25 Pain Scale: Adult hb 02:54 Pain Scale: Adult j7 NIH Stroke Scale Scores: 00:33 NIHSS Score: 0 sp4 Mike Coma Score: 00:33 Eye Response: spontaneous(4). Motor Response: obeys commands(6). Verbal Response: sp4 oriented(5). Total: 15. MDM: 08/12 20:21 Medical Screening Exam initiated sp4 08/13 00:09 ED course: EXAM: CT Chest, Abdomen and Pelvis Without Intravenous Contrast CLINICAL sp4 HISTORY: The patient is 79 years old and is Female; fever, weakness TECHNIQUE: Axial computed tomography images of the chest, abdomen and pelvis without intravenous contrast. Sagittal and coronal reformatted images were created and reviewed. This CT exam was performed using one or more of the following dose reduction techniques: automated exposure control, adjustment of the mA and/or kV according to patient size, and/or use of iterative reconstruction technique. COMPARISON: No relevant prior studies available. FINDINGS: CHEST: LUNGS: Minimal dependent densities in the right lower lobe are present. The lungs are otherwise well-inflated and clear. PLEURAL SPACE: Unremarkable. No significant effusion. No pneumothorax. HEART: No cardiomegaly. No pericardial effusion. THYROID: The thyroid gland is enlarged. A 3.5 cm right thyroid nodule is noted. ABDOMEN: LIVER: Homogeneous without focal mass. GALLBLADDER AND BILE DUCTS: The gallbladder is distended. No calcified gallstones or ductal dilatation is seen. PANCREAS: Fatty infiltration and atrophy of the pancreas is present. No ductal dilation. SPLEEN: Unremarkable. ADRENALS: Unremarkable. No mass. KIDNEYS AND URETERS: Multiple bilateral parapelvic renal cysts are noted. No follow-up imaging is recommended. Bilateral intrarenal calcifications are present. There is no hydronephrosis or hydroureter of either kidney. No obstructing calculus is seen. STOMACH AND BOWEL: The stomach is distended with food contents and air. The small bowel is normal in caliber. A moderate rectal stool ball is present. Stool is present throughout the colon. There is no mucosal thickening or evidence of obstruction. Scattered colonic diverticula are noted without surrounding inflammation. PELVIS: APPENDIX: The appendix is normal in caliber without surrounding inflammation. BLADDER: The bladder is incompletely distended. No stones. REPRODUCTIVE: Unremarkable as visualized. CHEST, ABDOMEN and PELVIS: INTRAPERITONEAL SPACE: Unremarkable. No significant fluid collection. No free air. BONES/JOINTS: No acute fracture. SOFT TISSUES: The soft tissues are normal. VASCULATURE: Atherosclerosis of the vasculature is present. The vessels are normal in caliber. No aortic aneurysm. LYMPH NODES: Unremarkable. No enlarged lymph nodes. IMPRESSION: 1. Right lower lobe atelectasis/scarring. 2. No bowel obstruction. Colonic diverticulosis. 3. Right thyroid nodule. Recommend non-emergent thyroid ultrasound. . 00:10 ED course: EXAM: Head Brain Wo Cont INDICATION: 79-year-old female with dizziness. sp4 COMPARISON: CT of the head 04/18/2023 TECHNIQUE: TECHNIQUE: Axial CT images of the brain were performed using dose reduction techniques including automated exposure control and/or adjustment of the mA and/or kV according to patient size, and/or iterative reconstruction techniques. Coronal and sagittal reformatted images were also performed. No IV contrast administered. FINDINGS: Brain parenchyma demonstrates no mass effect, shift, ventriculomegaly, or hemorrhage. Normal brenner/white matter differentiation. Mild bilateral cerebral hemispheric nonspecific deep white matter abnormal hypoattenuation, most suggestive of chronic cerebral microangiopathy. If symptoms persist MRI of the brain suggested for more sensitive evaluation, as clinically indicated. Osseous structures intact. Partially visualized mild to moderate subtotal opacification of the right maxillary sinus which can be seen with fluid and mucosal thickening. Mild bilateral mastoidal air cells subtotal opacification. Please clinically correlate for mastoiditis. Bilateral intraocular lens implants from prior cataract surgery. Mild bilateral cavernous carotid atherosclerotic calcifications. IMPRESSION: 1. Mild chronic appearing bilateral cerebral hemispheric deep white matter cerebral microangiopathy. 2. Partially visualized right maxillary sinus disease. 3. Mild bilateral mastoidal air cells disease. Please clinically correlate for mastoiditis.. 00:11 ED course: Chest - Procedure: Chest Single View HISTORY: Syncope COMPARISON: December 2023 sp4 FINDINGS: The lungs appear clear of acute infiltrate. No significant pleural effusion noted. The heart is mildly enlarged.. IMPRESSION: No acute abnormality is displayed. . 00:35 Differential diagnosis: diabetes insipidus, DKA, gestational diabetes, hyperglycemia, sp4 hyperthyroidism, hypoglycemic episode. Data reviewed: vital signs, nurses notes, lab test result(s), EKG, radiologic studies, CT scan, plain films. Consideration of Admission/Observation Escalation of care including admission/observation considered. ED course: Patient at this time is still feeling unwell. Requires monitoring in the hospital. There is persistent generalized weakness and worsening tremors. 08/12 20:22 Order name: Basic Metabolic Panel; Complete Time: 22:11 [facility] 08/12 20:22 Order name: CBC with Diff; Complete Time: 00:09 [facility] 08/12 20:22 Order name: LFT's; Complete Time: 22:11 [facility] 08/12 20:22 Order name: Magnesium; Complete Time: 22:11 [facility] 08/12 20:22 Order name: NT PRO-BNP; Complete Time: 22:11 [facility] 08/12 20:22 Order name: PT-INR; Complete Time: 21:59 [facility] 08/12 20:22 Order name: Troponin HS; Complete Time: 22:11 [facility] 08/12 20:34 Order name: Glucose, Ancillary Testing; Complete Time: 20:47 [facility] 08/12 20:47 Order name: Influenza Screen (a \T\ B); Complete Time: 21:59 [facility] 08/12 20:47 Order name: Blood Culture Adult (2) [facility] 08/12 20:47 Order name: Urinalysis W/Microscopic; Complete Time: 23:31 [facility] 08/12 20:47 Order name: T4 Free; Complete Time: 22:11 [facility] 08/12 20:47 Order name: TSH; Complete Time: 22:11 [facility] 08/12 20:47 Order name: CRP; Complete Time: 22:11 [facility] 08/12 21:56 Order name: Manual Differential; Complete Time: 00:09 [facility] 08/13 01:17 Order name: Urinalysis w/ reflexes [facility] 08/13 01:17 Order name: CBC with Automated Diff [facility] 08/13 01:17 Order name: CBC with Automated Diff [facility] 08/13 01:17 Order name: Comprehensive Metabolic Panel [facility] 08/13 01:17 Order name: Comprehensive Metabolic Panel [facility] 08/12 20:22 Order name: XRAY Chest (1 view); Complete Time: 21:59 sp4 08/12 22:13 Order name: CT Chest Abdomen Pelvis W/O Contrast; Complete Time: 00:09 sp4 08/12 22:14 Order name: CT Head Brain wo Cont sp4 08/12 20:22 Order name: Cardiac monitoring; Complete Time: 21:54 4 08/12 20:22 Order name: EKG - Nurse/Tech; Complete Time: 21:38 sp4 08/12 20:22 Order name: IV Saline Lock; Complete Time: 21:24 sp4 08/12 20:22 Order name: Labs collected and sent; Complete Time: 21:25 4 08/12 20:22 Order name: O2 Per Protocol; Complete Time: 21:24 sp4 08/12 20:22 Order name: O2 Sat Monitoring; Complete Time: 21:24 sp4 EC/24 21:34 Rate is 73 beats/min. Rhythm is regular, Sinus Rhythm. QRS Bur[place]um is Normal. HI interval sp4 is prolonged. QRS interval is normal. QT interval is normal. No Q waves. T waves are Normal. No ST changes noted. Clinical impression: No evidence of ischemia. Interpreted by me. Reviewed by me. Administered Medications: 21:44 Drug: NS 0.9% IV 1000 ml IV at 1000 ml once; to be given as a bolus over 60 minutes me1 Route: IV; Rate: 1000 ml; Site: right antecubital; 22:46 Follow up: Response: No adverse reaction; IV Status: Completed infusion; IV Intake: me1 1000ml 21:44 Drug: Acetaminophen PO 1000 mg PO once Route: PO; me1 22:46 Follow up: Response: No adverse reaction me1 21:44 Drug: Ibuprofen PO 800 mg PO once Route: PO; me1 22:45 Follow up: Response: No adverse reaction me1 21:45 Drug: Ondansetron IVP 4 mg IVP once; over 2 minutes Route: IVP; Site: right antecubital;me1 22:45 Follow up: Response: No adverse reaction; [place]ausea is decreased [facility] [place] 02:00 Drug: Albumin IVPB 50 grams 100 ml IVPB once; (Note: Albumin 25% concentration) Volume: jj7 100 ml; Route: IVPB; Site: right forearm; 03:00 Follow up: IV Status: Completed infusion jj7 Point of Care Testing: Blood Glucose: 08/12 20:25 Blood Glucose: 167 mg/dL; hb Ranges: Critical Glucose Levels:Adult <50 mg/dl or >400 mg/dl <40 mg/dl or >180 mg/dl Disposition Summary: 08/13/24 00:32 Hospitalization Ordered Notes: Hospitalization Status: Observation sp4 Provider: Prashanth Aviles sp4 Location: Telemetry/MedSurg (observation) sp4 Condition: Stable sp4 Problem: new sp4 Symptoms: have improved sp4 Bed/Room Type: Standard sp4 Room Assignment: 222(08/13/24 01:27) rv1 Diagnosis - Generalized weakness, Acute febrile illness, Near syncopal episode sp4 Forms: - Medication Reconciliation Form sp4 - SBAR form sp4 - Leadership Thank You Letter sp4 NIH Stroke Scale - NIH Stroke Score Date: 08/13/2024 Time: 00:33 Total Score = 0 10. Dysarthria (speech clarity - read or repeat words) - 0(Normal) 11. Extinction and Inattention (visual/tactile/auditory/spatial/personal) - 0(No abnormality) 1a. Level of Consciousness (LOC) - 0(Alert) 1b. Level of Consciousness (LOC) (Month \T\ Age) - 0(Both) 1c. LOC Commands (Open \T\ Closes Eyes/Airport Operations Specialist) - 0(Both) 2. Best Gaze (Lateral Gaze Paresis) - 0(Normal) 3. Visual Field Loss - 0(No visual loss) 4. Facial Palsy - 0(Normal) 5a. Left Arm: Motor (10-second hold) - 0(No drift) 5b. Right Arm: Motor (10-second hold) - 0(No drift) 6a. Left Leg: Motor (5-second hold - always test supine) - 0(No drift) 6b. Right Leg: Motor (5-second hold - always test supine) - 0(No drift) 7. Limb Ataxia (finger/nose \T\ heel/olvera - test with eyes open) - 0(Absent) 8. Sensory Loss (pinprick arms/legs/face) - 0(Normal) 9. Best Language: Aphasia (description/naming/reading) - 0(No aphasia) Initials: sp4 Signatures: Dispatcher [employer] EDMS Rosalie White, RN RN Manfred Jack RN RN jj7 Sroaida Bernard rv1 Jarret Lind MD MD sp4 Sonya Dotson RN RN me1 Corrections: (The following items were deleted from the chart) 20:48 20:48 Influenza Screen (A \T\ B)+BA.LAB.BRZ ordered. EDMS EDMS 20:48 20:48 BLOOD CULTURE*+BA.LAB.BRZ ordered. EDMS EDMS 20:48 20:48 Urinalysis W/Microscopic+U.LAB.BRZ ordered. EDMS EDMS 20:48 20:48 T4 FREE+C.LAB.BRZ ordered. EDMS EDMS 20:48 20:48 THYROID STIMULAT HORMONE+C.LAB.BRZ ordered. EDMS EDMS 20:48 20:48 C-REACTIVE PROTEIN+C.LAB.BRZ ordered. EDMS EDMS 08/13 01:27 00:32 sp4 rv1
--- NOTE | 2024-08-13 00:33 | ER ---
Nurse's Notes [facility] Name: Kristina Cooley Age: 79 yrs Sex: Female : 1945 Arrival Date: 08/12/2024 Time: 20:16 Bed 23 Private MD: Diagnosis: Generalized weakness, Acute febrile illness, Near syncopal episode Presentation: 08/12 20:27 Chief complaint: Patient states: started feeling unwell yesterday with cough and hb headache. Today feeling like I have no strength, felt like blood sugar was low. This evening felt dizzy and almost fell down. Feels dizzy when tries to move. Had several falls or near falls this last year due to dizziness. Coronavirus screen: Client denies travel out of the [place] in the last 14 days. Ebola Screen: Patient negative for fever greater than or equal to 101.5 degrees Fahrenheit, and additional compatible Ebola Virus Disease symptoms Patient denies exposure to infectious person. Patient denies travel to an Ebola-affected area in the 21 days before illness onset. No symptoms or risks identified at this time. Initial Sepsis Screen: Does the patient meet any 2 criteria? No. Patient's initial sepsis screen is negative. Does the patient have a suspected source of infection? No. Patient's initial sepsis screen is negative. Risk Assessment: Do you want to hurt yourself or someone else? Patient reports no desire to harm self or others. 20:27 Method Of Arrival: Wheelchair 20:27 Acuity: MARTI 3 hb 20:30 Onset of symptoms was August 11, 2024. Triage Assessment: 20:27 General: Appears in no apparent distress. Behavior is calm, cooperative. Pain: Denies hb pain. EENT: No signs and/or symptoms were reported regarding the EENT system. Neuro: Level of Consciousness is awake, alert, obeys commands, Oriented to person, place, time, situation, Reports dizziness, since this evening. Cardiovascular: Patient's skin is warm and dry. Respiratory: Reports cough that is Airway is patent Respiratory effort is even, unlabored, Respiratory pattern is regular, symmetrical. GI: No signs and/or symptoms were reported involving the gastrointestinal system. Abdomen is round non-distended. : No signs and/or symptoms were reported regarding the genitourinary system. Derm: No signs and/or symptoms reported regarding the dermatologic system. Musculoskeletal: No signs and/or symptoms reported regarding the musculoskeletal system. 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 - Infectious Disease History:: Denies. - Social history:: Smoking status: Patient denies any tobacco usage or history of. - Family history:: not pertinent. Screenin:21 [facility] ED Fall Risk Assessment (Adult) History of falling in the last 3 months, me1 including since admission No falls in past 3 months (0 pts) Confusion or Disorientation No (0 pts) Intoxicated or Sedated No (0 pts) Impaired Gait Yes (1 pt) Mobility Assist Device Used Yes (1 pt) Altered Elimination No (0 pt) Score/Fall Risk Level 0 - 2 = Low Risk Maintained a safe environment, Provided non-skid footwear, Hourly rounding (assess needs \T\ fall precautionary measures) done. Abuse screen: Denies threats or abuse. Nutritional screening: No deficits noted. Tuberculosis screening: No symptoms or risk factors identified. Assessment: 21:21 General: Appears ill, obese, well groomed, well developed, Behavior is calm, me1 cooperative, appropriate for age, Reports started feeling unwell yesterday with cough and headache. Today feeling like I have no strength, felt like blood sugar was low. This evening felt dizzy and almost fell down. Feels dizzy when tries to move. Had several falls or near falls this last year due to dizziness. Pain: Denies pain. Neuro: Level of Consciousness is awake, alert, obeys commands, Oriented to person, place, time, situation, Appropriate for age Reports dizziness, at times. headache. Cardiovascular: Patient's skin is warm and dry. Respiratory: Reports cough that is since yesterday Airway is patent Respiratory effort is even, unlabored, Respiratory pattern is regular, symmetrical. GI: No signs and/or symptoms were reported involving the gastrointestinal system. : No signs and/or symptoms were reported regarding the genitourinary system. Denies burning with urination, urinary frequency. EENT: No signs and/or symptoms were reported regarding the EENT system. Derm: Skin is intact, is healthy with good turgor, Skin is pink, warm \T\ dry. Musculoskeletal: Reports generalized weakness. 08/13 01:00 Reassessment: PT SLEEPING IN WHEELCHAIR FOR COMFORT. BP DECREASED. BP CUFF READJUSTED. jj7 PT REPOSITIONED. 01:25 Reassessment: INFORMED OF LOW BP. ORDER FOR ALBUMIN. jj7 02:05 Reassessment: PT WILL GO TO UNIT \T\0245 AT REQUEST OF STOCK PARTS FABRICATOR DUE TO NURSE luis f TAKING PT HAVING 3 ADMISSIONS. PT AND FAMILY INFORMED. 03:10 Reassessment: Patient is alert, oriented x 3, equal unlabored respirations, skin jj7 warm/dry/pink. Vital Signs: 08/12 20:25 BP 155 / 69; Pulse 82; Resp 19; Temp 99.2(O); Pulse Ox 94% on R/A; MAP 91 mmHg; Weight hb 95.25 kg; Height 5 ft. 2 in. ; Pain 0/10; 20:42 Temp 100.4(O); me1 21:30 BP 128 / 94; Pulse 73; Resp 16; Pulse Ox 97% ; me1 22:30 BP 129 / 58; Pulse 66; Resp 16; Pulse Ox 95% ; me1 23:00 BP 109 / 59; Pulse 55; Resp 17; Pulse Ox 92% ; me1 23:59 BP 109 / 49; Pulse 57; Resp 18; Pulse Ox 94% on R/A; mi1 08/13 01:00 BP 84 / 38; Pulse 53; Resp 20; Pulse Ox 98% ; j7 01:30 BP 81 / 43; Pulse 44; Resp 18; Pulse Ox 94% ; j7 02:22 BP 99 / 51; Pulse 45; Resp 15; Pulse Ox 96% ; jj7 02:54 BP 103 / 43; Pulse 49; Resp 16; Pulse Ox 96% ; Pain 0/10; jj7 08/12 20:25 Body Mass Index 38.41 (95.25 kg, 157.48 cm) hb 08/12 20:25 Pain Scale: Adult hb 02:54 Pain Scale: Adult jj7 Kirkwood Coma Score: 00:33 Eye Response: spontaneous(4). Motor Response: obeys commands(6). Verbal Response: sp4 oriented(5). Total: 15. NIH Stroke Scale Scores: 00:33 NIHSS Score: 0 sp4 ED Course: 08/12 20:18 Patient arrived in ED. jj6 20:20 Jarret Lind MD is Attending Physician. sp4 20:27 Arm band placed on right wrist. hb 20:29 Triage completed. hb 20:39 Sonya Dotson, RN is Primary Nurse. me1 20:56 Influenza Screen (a \T\ B) Sent. me1 20:56 Flu and/or RSV swab sent to lab. me1 21:21 Patient has correct armband on for positive identification. Bed in low position. Call me1 light in reach. Side rails up X2. Provided Education on: POC. Verbalized understanding.. Client placed on continuous cardiac and pulse oximetry monitoring. NIBP monitoring applied. metal window screen assembler on. Pulse ox on. NIBP on. 21:21 No provider procedures requiring assistance completed. me1 21:24 First set of blood cultures drawn by ED staff. me1 21:25 Influenza Screen (a \T\ B) Sent. me1 21:30 XRAY Chest (1 view) In Process Unspecified. EDMS 21:33 Basic Metabolic Panel Sent. me1 21:33 CBC with Diff Sent. me1 21:33 LFT's Sent. me1 21:33 Magnesium Sent. me1 21:33 NT PRO-BNP Sent. me1 21:33 PT-INR Sent. me1 21:33 Troponin HS Sent. me1 21:33 Initial lab(s) drawn, by ED staff, sent to lab. Inserted saline lock: 20 gauge in right me1 antecubital area, using aseptic technique. Blood collected. Flushed with 10 mL NS. 21:38 EKG done, by ED staff, reviewed by Jarret Lind MD. sa1 21:54 Troponin HS Sent. vk 21:54 NT PRO-BNP Sent. vk 21:54 Magnesium Sent. vk 21:54 LFT's Sent. vk 21:54 CBC with Diff Sent. vk 21:54 Basic Metabolic Panel Sent. vk 21:54 Second set of blood cultures drawn by ED staff. me1 22:39 Urinalysis W/Microscopic Sent. me1 22:39 Urine collected: clean catch specimen, cloudy. me1 23:17 CT Chest Abdomen Pelvis W/O Contrast In Process Unspecified. EDMS 23:17 CT Head Brain wo Cont In Process Unspecified. EDMS 08/13 00:29 Prashanth Aviles MD is Hospitalizing Provider. sp4 01:00 Door closed. Lights dimmed. jj7 02:54 Patient admitted, IV remains in place. jj7 Administered Medications: 08/12 21:44 Drug: NS 0.9% IV 1000 ml IV at 1000 ml once; to be given as a bolus over 60 minutes me1 Route: IV; Rate: 1000 ml; Site: right antecubital; 22:46 Follow up: Response: No adverse reaction; IV Status: Completed infusion; IV Intake: me1 1000ml 21:44 Drug: Acetaminophen PO 1000 mg PO once Route: PO; me1 22:46 Follow up: Response: No adverse reaction me1 21:44 Drug: Ibuprofen PO 800 mg PO once Route: PO; me1 22:45 Follow up: Response: No adverse reaction me1 21:45 Drug: Ondansetron IVP 4 mg IVP once; over 2 minutes Route: IVP; Site: right antecubital;me1 22:45 Follow up: Response: No adverse reaction; Nausea is decreased me1 08/13 02:00 Drug: Albumin IVPB 50 grams 100 ml IVPB once; (Note: Albumin 25% concentration) Volume: jj7 100 ml; Route: IVPB; Site: right forearm; 03:00 Follow up: IV Status: Completed infusion jj7 Medication: 08/12 21:21 VIS not applicable for this client. mi1 Point of Care Testing: Blood Glucose: 20:25 Blood Glucose: 167 mg/dL; hb Ranges: Intake: 22:46 IV: 1000ml; Total: 1000ml. me1 Outcome: 08/13 00:32 Decision to Hospitalize by Provider. sp4 01:47 Admitted to Med/surg room 222, Report called to [facility] FAXED TO 2ND FLOOR jj7 03:10 Admitted to Med/surg accompanied by luis f willard 03:10 Condition: good 03:20 Patient left the ED. jj7 NIH Stroke Scale - NIH Stroke Score Date: 08/13/2024 Time: 00:33 Total Score = 0 10. Dysarthria (speech clarity - read or repeat words) - 0(Normal) 11. Extinction and Inattention (visual/tactile/auditory/spatial/personal) - 0(No abnormality) 1a. Level of Consciousness (LOC) - 0(Alert) 1b. Level of Consciousness (LOC) (Month \T\ Age) - 0(Both) 1c. LOC Commands (Open \T\ Closes Eyes/Sales Development Manager) - 0(Both) 2. Best Gaze (Lateral Gaze Paresis) - 0(Normal) 3. Visual Field Loss - 0(No visual loss) 4. Facial Palsy - 0(Normal) 5a. Left Arm: Motor (10-second hold) - 0(No drift) 5b. Right Arm: Motor (10-second hold) - 0(No drift) 6a. Left Leg: Motor (5-second hold - always test supine) - 0(No drift) 6b. Right Leg: Motor (5-second hold - always test supine) - 0(No drift) 7. Limb Ataxia (finger/nose \T\ heel/olvera - test with eyes open) - 0(Absent) 8. Sensory Loss (pinprick arms/legs/face) - 0(Normal) 9. Best Language: Aphasia (description/naming/reading) - 0(No aphasia) Initials: sp4 Signatures: Dispatcher [employer] EDRosalie Enciso RN RN hb Jolynn Partida jj6 Manfred Anderson RN RN jj7 Jarret Lind MD MD sp4 Sonya Dotson RN RN me1 Keara Chun, sa1 Corrections: (The following items were deleted from the chart) 08/12 20:31 20:27 Chief complaint: Patient states: started feeling unwell yesterday with hb cough and headache. Today feeling like I have no strength, felt like blood sugar was low. This evening felt dizzy and almost fell down. Feels dizzy when tries to move hb 21:20 20:27 Chief complaint: Patient states: started feeling unwell yesterday with me1 cough and headache. Today feeling like I have no strength, felt like blood sugar was low. This evening felt dizzy and almost fell down. Feels dizzy when tries to move. Had several falls or near falls this last year due to dizziness hb 08/13 02:07 01:00 Reassessment: PT SLEEPING IN WHEELCHAIR FOR COMFORT. BP DECREASED. BP jj7 CUFF READJUSTED. jj7 03:41 03:40 Patient left the ED. jj7 jj7
--- NOTE | 2024-08-13 01:11 | P.HP ---
Certification for Inpatient Patient admitted to: Observation With expected LOS: <2 Midnights Practitioner: I am a practitioner with admitting privileges, knowledge of patient current condition, hospital course, and medical plan of care. Services: Services provided to patient in accordance with Admission requirements found in Title 42 Section 412.3 of the Code of Federal Regulations Patient History Date of Service: 08/13/24 Reason for admission: Dizziness/presyncope History of Present Illness: 79 yrs old Female with past medical history of hypertension, diabetes, Parkinson's disease, thyroid tumor, presents to ER with complaints heaviness and dizziness and near syncopal episodes which has been going on for the last 2 days and has been progressively worsening. Denies any sick contacts. Complains of lethargic. Has subjective fever and generalized weakness and near syncopal episodes. She also complains of fever and cough and upper respiratory tract like symptoms. She had a flu test in the ER which was negative. Patient's home medications include metformin 1000 mg p.o. twice daily, insulin 70/30 30 units daily, Mounjaro insulin and bisoprolol.. Patient was assessed in the ER and is admitted for further management and monitoring for presyncopal episodes Allergies Penicillins Allergy (Mild, Verified 05/09/12 12:54) Itching/Hives/Rash Home medications list reviewed: Yes Home Medications: Bisoprolol/Hydrochlorothiazide [Bisoprolol-Hctz 5-6.25 mg Tab] 1 each PO DAILY 08/13/24 Insulin 70/30 NPH/Reg Human [Novolin 70/30*] 30 - 45 unit SQ LUNCH 08/13/24 Metformin HCl 1,000 mg PO BIDWM 08/13/24 Methimazole 5 mg PO DAILY 08/13/24 - Past Medical/Surgical History Past Medical History: Reviewed- Non-Contributory -: Diabetes, hypertension, Parkinson's disease, thyroid tumor Past Surgical History: Reviewed- Non-Contributory - Family History Family History: Reviewed- Non-Contributory - Family History Mother -: Cancer Notes: Pancreatic CA Father -: Cancer Notes: Pancreatic Cancer Brother -: Cancer Sister -: Cancer - Social History Smoking Status: Never smoker Review of Systems 10-point ROS is otherwise unremarkable Physical Examination - Vital Signs Temperature: 99.2 F Blood Pressure: 156/62 - Physical Exam General: Alert, In no apparent distress, Oriented x3 HEENT: Atraumatic, Normocephalic - Studies Laboratory Data (last 24 hrs) 08/12/24 08/12/24 08/12/24 21:24 21:24 21:24 WBC 11.80 H Hgb 11.7 L Hct 36.2 Plt Count 195 PT 12.0 INR 1.07 Sodium 137 Potassium 4.2 BUN 26 H Creatinine 0.96 Glucose 164 H Magnesium 1.8 Total Bilirubin 0.5 AST 22 ALT 21 Alkaline Phosphatase 83 Microbiology Data (last 24 hrs): 08/12/24 20:54 Nasopharnyx Influenza Type A Antigen Screen - Final 08/12/24 20:54 Nasopharnyx Influenza Type B Antigen Screen - Final Assessment and Plan - Plan Presyncope Dizziness Syncope workup Monitor closely under telemetry Right lower lobe pneumonia Started on IV antibiotic Antitussives Tylenol as needed Hypertension Antihypertensives titrated Continue home medications and titrate as needed Hyperlipidemia Continue statin Parkinson's disease Continue home medications and titrate as needed Diabetes Insulin sliding scale Accu-Chek before every meal and at bedtime GI/DVT prophylaxis Advanced directive full code Discharge Plan: Home Plan to discharge in: 48 Hours - Advance Directives Does patient have a Living Will: No Does patient have a Durable POA for Healthcare: No - Code Status/Comfort Care Code Status: Full Code Time Spent Managing Pts Care (In Minutes): 48
[2024-08-13] MEDS ORDERED: ONDANSETRON 4 MG/2 ML VIAL IV PRN (01:12)
[2024-08-13] MEDS ORDERED: ACETAMINOPHEN 325 MG TABLET PO PRN (01:12)
[2024-08-13] MEDS ORDERED: ALBUMIN HUMAN 25% 200 ML IV ONE (01:52)
[2024-08-13 03:47] VITALS: BMI 39.4
[2024-08-13 04:12] VITALS: O2SAT 96
[2024-08-13] MEDS ORDERED: GUAIFENESIN/DM 5 ML UCUP PO PRN (05:23)
[2024-08-13] MEDS: Levofloxacin 750mg IV 750 MG/150 ML BAG IV SCH (05:47)
[2024-08-13 05:49] LABS: SARS-CoV-2 Antigen CONTROL BLUE LINE VIS/BG OK; SARS-CoV-2 Antigen Rapid Res Negative (Negative)
[2024-08-13] MEDS: BISOPROLOL/HCTZ 5/6.25MG TAB PO SCH (09:00)
[2024-08-13] MEDS: METFORMIN HCL 500 MG TAB PO SCH (09:14)
[2024-08-13] MEDS: ENOXAPARIN 40 MG/0.4 ML SQ SCH (09:15)
[2024-08-13 12:26] VITALS: TEMP 98.1
--- NOTE | 2024-08-13 13:52 | P.DS ---
Admission Date: 08/13/24 Discharge Date: 08/13/24 Disposition: [facility] HOME/HOME HEALTH CARE Discharge Condition: FAIR Reason for Admission: Dizziness/presyncope Brief History of Present Illness: 79 yrs old Female with past medical history of hypertension, diabetes, Parkinson's disease, thyroid tumor, hyperthyroidism presented to the ER with complaints dizziness and generalized weakness which has been going on for the last 2 days and has been progressively worsening. Denies any sick contacts. She reported subjective fever and generalized weakness. She reported fever and cough and upper respiratory tract like symptoms. Her flu test in the ER was negative. Patient was assessed in the ER and is admitted for further evaluation and management. Hospital Course: Diagnosis Dizziness Hyperthyroidism Hypertension Hyperlipidemia Parkinson's disease Patient placed on observation on the medical floor and treated with supportive measures, cough suppressant, IV antibiotics for suspected infective bacterial bronchitis. Patient noted to have tremors which she relates to hyperthyroidism. Her TSH was 0.12 indicating hyperthyroid state. Patient dizziness likely related to the hyperthyroidism. She also has upper respiratory infection with nonproductive cough. Patient reports generalized weakness but patient has been able to ambulate today. Patient's symptoms likely related to acute viral syndrome and hyperthyroidism. Patient is discharged with oral Levaquin for possible infective bronchitis. Her methimazole is being titrated by her video presentation operator. Patient is informed to follow-up with her video presentation operator to possibly increase her methimazole dose. Vital Signs/Physical Exam: Temp Pulse Resp BP Pulse Ox 98.1 F 74 16 185/97 H 95 08/13/24 12:00 08/13/24 12:00 08/13/24 12:00 08/13/24 12:00 08/13/24 12:00 General: Alert, In no apparent distress, Oriented x3 HEENT: Mucous membr. moist/pink Neck: Supple, JVD not distended Respiratory: Clear to auscultation bilaterally, Normal air movement Cardiovascular: Regular rate/rhythm, Normal S1 S2 Gastrointestinal: Normal bowel sounds, Soft and benign, Non-distended, No tenderness Musculoskeletal: No swelling Integumentary: No rashes, No cyanosis Neurological: Normal strength at 5/5 x4 extr Laboratory Data at Discharge: WBC 11.80 thou/uL (4.3-10.9) H 08/12/24 21:24 Hgb 11.7 g/dL (12.0-15.0) L 08/12/24 21:24 Hct 36.2 % (36.0-45.0) 08/12/24 21:24 Plt Count 195 thou/uL (152-406) 08/12/24 21:24 PT 12.0 SECONDS (9.4-12.5) 08/12/24 21:24 INR 1.07 08/12/24 21:24 Sodium 137 mEq/L (136-145) 08/12/24 21:24 Potassium 4.2 mEq/L (3.5-5.1) 08/12/24 21:24 BUN 26 mg/dL (7-18) H 08/12/24 21:24 Creatinine 0.96 mg/dL (0.55-1.02) 08/12/24 21:24 Glucose 164 mg/dL (74-106) H 08/12/24 21:24 Magnesium 1.8 mg/dL (1.6-2.4) 08/12/24 21:24 Total Bilirubin 0.5 mg/dL (0.2-1.0) 08/12/24 21:24 AST 22 U/L (15-37) 08/12/24 21:24 ALT 21 U/L (13-56) 08/12/24 21:24 Alkaline Phosphatase 83 U/L (45-117) 08/12/24 21:24 Home Medications: Bisoprolol/Hydrochlorothiazide [Bisoprolol-Hctz 5-6.25 mg Tab] 1 each PO DAILY 08/13/24 Docusate [Colace Cap] 100 mg PO BID #60 cap 08/13/24 Guaif/Dm [Robitussin Dm*] 10 ml PO Q6H PRN #473 ml 08/13/24 Insulin 70/30 NPH/Reg Human [Novolin 70/30*] 30 - 45 unit SQ LUNCH 08/13/24 Metformin HCl 1,000 mg PO BIDWM 08/13/24 Methimazole 5 mg PO DAILY 08/13/24 Polyethylene Glycol 3350 [Miralax] 17 gm PO DAILY PRN #30 packet 08/13/24 levoFLOXacin [Levaquin] 750 mg PO DAILY #5 tab 08/13/24 New Medications: Docusate [Colace Cap] 100 mg PO BID #60 cap levoFLOXacin [Levaquin] 750 mg PO DAILY #5 tab Polyethylene Glycol 3350 [Miralax] 17 gm PO DAILY PRN #30 packet PRN Reason: Constipation Guaif/Dm [Robitussin Dm*] 10 ml PO Q6H PRN #473 ml PRN Reason: Cough Physician Discharge Instructions: PROBLEM: Near Syncopal episode GOAL: Clear understanding of disease process INSTRUCTIONS: Take medications as directed Follow up with your primary physician in 1-2 weeks Return to ER for any emergency Call nurse's station for any questions about your stay [phone] Diet: ADA Activity: Fall precautions Diet: ADA Activity: Fall precautions Followup: Shane Moralez DO [Primary Care Provider] - 1 Week Time spent managing pt's care (in minutes): 33
[2024-08-13] MEDS ORDERED: HYDRALAZINE HCL 20 MG/ML VIAL IV PRN (14:24)
[2024-08-13 14:36] VITALS: BP 151/90
[2024-08-14] MEDS ORDERED: Levofloxacin 750mg IV 750 MG/150 ML BAG IV SCH (09:00)
[2024-08-14] MEDS ORDERED: HCTZ PO SCH (09:00)
[2024-08-14] MEDS ORDERED: BISOPROLOL PO SCH (09:00)
--- NOTE | 2024-08-15 13:42 | EKG ---
Test Date: 2024-08-12 Test Time: 21:34:08 Intranet Developer: MEASUREMENT RESULTS: Intervals: Rate: 73 VA: 312 QRSD: 86 QT: 400 QTc: 440 [place]: P: 65 VA: 312 QRS: 7 T: 63 INTERPRETIVE STATEMENTS: Sinus rhythm with 1st degree AV block Cannot rule out Anterior infarct, age undetermined Abnormal ECG Compared to ECG 01/25/2007 18:51:35 Myocardial infarct finding now present Left ventricular hypertrophy no longer present Electronically Signed On 08-15-24 13:37:31 SOFTWARE TEST ANALYST by Maldonado Baum
== END 2024-08-13 15:00 | disposition home health service (06) ==
LOC: ER 20:16 → ERHOLD 08-13 01:12 → 2ND 08-13 01:58
PROVIDERS: ADMIT Family Medicine; ATTEND Internal Medicine
DX: J06.9 Acute upper respiratory infection, unspecified (principal); E05.90 Thyrotoxicosis, unspecified without thyrotoxic crisis or storm; J18.1 Lobar pneumonia, unspecified organism; R55 Syncope and collapse; I10 Essential (primary) hypertension; E11.9 Type 2 diabetes mellitus without complications; G20.A1 Parkinson's disease without dyskinesia, without mention of fluctuations; E04.1 Nontoxic single thyroid nodule; R05.9 Cough, unspecified; R25.1 Tremor, unspecified; Z88.0 Allergy status to penicillin; Z11.52 Encounter for screening for COVID-19
CPT/HCPCS: 96365; 96361; 93005; 87040 ×2; 85025; 81001; 80048; 36415 ×2; 83735; 85610; 82947 ×2; 80076; 84443; 84484; 84439; 83880; 86140; 87804 ×2; 70450; 71250; 74176; 71045; 94760; 96375; 99285; 87811; J1650; J2405; P9047; J7030; G0378 ×2